=== PATIENT | female | born 1970 | race Caucasian/White ===

== ENCOUNTER → 2016-07-24 | Outpatient (CLI) | payer OTHER ==
[~2016-07-24] MED LIST: BUSPAR5 MG PO; CLEOCIN150 MG PO; IBUPROFEN600 MG PO; MAGNESIUM200 MG PO; Motrin,Rufen800 MG PO; NAPROSYN500 MG PO; NORCO 325 MG-51 TAB PO; PERIDEX 480 ML480 ML PO; PREDNICOT20 MG PO; PREDNISONE10 MG PO; ROBITUSSIN AC 10 MG/ PO; SYNTHROID0.1 MG PO; VICODIN ES 7501 TAB PO; VITAMIN D5000 I3 PO; ZITHROMAX Z PA250 MG PO; ZITHROMAX250 MG PO; ZOLOFT50 MG PO
[2016-07-24 16:33] LABS: BUN 15 mg/dl (7-24); CARBON DIOXIDE 28 mmol/L (21-32); CHLORIDE 108 mmol/L (98-107); EST GLOM FILT AFRICAN AMERICAN > 60 ml/min; GLUCOSE 73 mg/dL (65-99); POTASSIUM 4.5 mmol/L (3.5-5.1); SODIUM 139 mmol/L (136-145)
[2016-07-24 16:44] LABS: FREE T4 1.41 ng/dl (0.76-1.46); THYROID STIM HORMONE (HS) 0.884 uIU/ml (0.358-4.75)
== END | disposition home or self-care (01) ==
LOC: LAB 15:03
PROVIDERS: Internal Medicine
DX: E03.9 Hypothyroidism, unspecified (principal); E55.9 Vitamin D deficiency, unspecified

== ENCOUNTER → 2016-10-27 | Outpatient (CLI) | payer OTHER ==
[2016-10-27 12:57] LABS: FREE T4 1.17 ng/dl (0.76-1.46)
[2016-10-27 13:03] LABS: THYROID STIM HORMONE (HS) 3.33 uIU/ml (0.358-4.75)
== END | disposition home or self-care (01) ==
LOC: LAB 12:06
PROVIDERS: Internal Medicine
DX: E83.42 Hypomagnesemia (principal); E03.9 Hypothyroidism, unspecified

== ENCOUNTER 2017-09-25 15:34 | Emergency (ER) | payer OTHER ==
[~2017-09-25] VITALS: Ht 167.6 cm; Wt 79.8 kg
[2017-09-25] MEDS ORDERED: CYCLOBENZAPRINE10 MG PO (16:41)
[2017-09-25] MEDS ORDERED: NAPROSYN500 MG PO (16:41)
[2017-09-25] MEDS ORDERED: MEDROL DOSEPAK4 MG PO (16:41)
== END 2017-09-25 17:26 | disposition home or self-care (01) ==
LOC: ED 15:34
DX: S76.812A Strain of other specified muscles, fascia and tendons at thigh level, left thigh, initial encounter (principal); Z79.899 Other long term (current) drug therapy; X50.1XXA Overexertion from prolonged static or awkward postures, initial encounter; Y93.89 Activity, other specified; Y92.89 Other specified places as the place of occurrence of the external cause; Y99.9 Unspecified external cause status

== ENCOUNTER → 2018-08-08 | Outpatient (CLI) | payer OTHER ==
[~2018-08-08] MED LIST changes: +CYCLOBENZAPRINE10 MG PO; +MEDROL DOSEPAK4 MG PO
== END | disposition home or self-care (01) ==
LOC: MAMMO 07:26
DX: Z12.31 Encounter for screening mammogram for malignant neoplasm of breast (principal)

== ENCOUNTER → 2020-02-16 | Outpatient (CLI) | payer OTHER | END | disposition home or self-care (01) | LOC: MAMMO 02-09 14:00 | PROVIDERS: ATTEND Nurse Practitioner Primary Care | DX: Z12.31 Encounter for screening mammogram for malignant neoplasm of breast (principal); N63.11 Unspecified lump in the right breast, upper outer quadrant ==

== ENCOUNTER → 2022-06-27 | Outpatient (CLI) | payer OTHER | END | disposition home or self-care (01) | LOC: MAMMO 06-15 11:30 | PROVIDERS: ATTEND Internal Medicine | DX: Z12.31 Encounter for screening mammogram for malignant neoplasm of breast (principal) ==